=== PATIENT | female | born 1970 | race Caucasian/White ===

== ENCOUNTER 2017-08-30 05:10 | Emergency (ER) | payer BC, OTHER ==
[2017-08-30 05:56] LABS: #Basophils 0.1 thou/uL (0.0-0.2); #Eosinphils 0.2 thou/uL (0.0-0.7); #Lymphocytes 1.7 thou/uL (1.20-3.40); #Monocytes 0.6 thou/uL (0.11-0.59); #Neutrophils 4.3 thou/uL (1.40-6.50); %Basophils 1.3 % (0.0-1.0); %Eosinophils 2.6 % (0.0-10.0); %Lymphocytes 24.8 % (21.0-51.0); %Monocytes 8.2 % (0.0-10.0); %Neutrophils 63.1 % (42.0-75.0); Hemoglobin 14.5 g/dL (12.0-16.0); Mean Corpuscular HGB CONC 34.5 g/dL (32.0-36.0); Mean Corpuscular Hemoglobin 30.5 pg (27.0-31.0); Mean Corpuscular Volume 88.5 fl (81.0-99.0); Platelet Count 148 thou/uL (130-400); RBC Distribution Width 11.7 % (11.5-14.5); Red Blood Cell (RBC) Count 4.74 mill/uL (4.20-5.40); White Blood Cell (WBC) Count 6.8 thou/uL (4.8-10.8)
[2017-08-30] MEDS ORDERED: Ondansetron ODT 4 MG TAB ONE (06:01)
[2017-08-30] MEDS ORDERED: Acetaminophen 325 MG TAB ONE (06:01)
[2017-08-30 06:17] LABS: Bilirubin Negative (Negative); Blood, Urine Negative (Negative); Clarity CLEAR (Clear); Glucose, Urine (Dipstick) 100 mg/dL (Negative); Leukocyte Negative (Negative); Nitrite Negative (Negative); Protein, Urine (Dipstick) 30 mg/dL (Neg-Trace); Specific Gravity, Urine 1.029 (1.002-1.036); Urobilinogen 0.2 mg/dL (0.2-1.0); pH, Urine 5.5 (5.0-9.0)
[2017-08-30 06:18] LABS: Pregnancy Test - Urine (BHCG) Negative (Negative); Pregu Control Background? CLEAR/WHITE (CLR/WHITE); Pregu Control Bar Appear? YES (CONTROL BAR); Specific Gravity 1.029 (1.002-1.036)
[2017-08-30 06:20] LABS: ALT (SGPT) 11 U/L (8-55); AST (SGOT) 19 U/L (5-34); Alkaline Phosphatase 68 U/L (40-150); Anion Gap 13 mmol/L (10-20); BUN (Urea Nitrogen) 19 mg/dL (7.0-18.7); Bilirubin, Total 0.3 mg/dL (0.2-1.2); Calc. Creatinine Clearance 0 mL/min (70-130); Calcium 9.5 mg/dL (7.8-10.44); Carbon Dioxide 21 mmol/L (22-29); Chloride 108 mmol/L (98-107); Estimated GFR-MDRD 88; Glucose 107 mg/dL (70-105); Lipase 21 U/L (8-78); Potassium 3.9 mmol/L (3.5-5.1); Sodium 138 mmol/L (136-145)
[2017-08-30 06:20] LABS: Bacteria/HPF None Seen HPF (None Seen); Hyaline Casts/LPF 0-3 HYALINE CAST LPF (0-3 Hyaline); Pathc Cast-AUWi Flag 0.67 (0-2.49); RBC/HPF 0-3 HPF (0-3); WBC/HPF 0-3 HPF (0-3)
[2017-08-30 06:26] LABS: Crystals/HPF 2+ CA OXALATE HPF (Negative)
[2017-08-30] MEDS ORDERED: Ketorolac Tromethamine 30 MG/ML VIAL ONE (07:24)
--- NOTE | 2017-08-30 07:41 | RAD ---
CHEST 1 VIEW ABDOMEN 2 VIEWS: Date: 08/30/17 HISTORY: Chest and abdomen pain. FINDINGS: The cardiac silhouette and pulmonary vasculature are unremarkable. Mediastinum is midline. There is n o confluent air space consolidation or evidence of free subdiaphragmatic gas. Gas and stool are apparent throughout the colon and rectum. There are no differential air fluid level s. Metallic clips overlie the gallbladder fossa and right lower quadrant. Phleboliths project over th e pelvis. IMPRESSION: 1. No active cardiopulmonary abnormalities are demonstrated. 2. Nonspecific bowel gas pattern. 3. Postoperative changes of the abdomen. POS: [facility]
--- NOTE | 2017-08-30 08:13 | ULT ---
PELVIC ULTRASOUND WITH DOPPLER: (Transabdominal, transvaginal, Perez scale, color flow and spectral Doppler) Date: 08/30/17 HISTORY: Left lower quadrant pain. FINDINGS: The uterus measures 9.0 x 5.7 x 4.5 cm without focal mass or endometrial fluid. The endometrium measu res 1.0 cm in thickness. The right ovary is not seen. The left ovary measures 4.0 x 3.9 x 3.8 cm, and demonstrates flow. There is a complex cyst arising from the left ovary measuring 3.5 x 3.3 x 3.3 cm. No free fluid is seen in the cul-de-sac. Nabothian cysts are present in the cervix. IMPRESSION: Complex 3.5 cm left ovarian cyst. A follow-up exam is recommended in 8-10 weeks. POS: [facility]
== END 2017-08-30 10:05 | disposition home or self-care (01) ==
LOC: ERS 05:10
DX: N83.202 Unspecified ovarian cyst, left side (principal); E11.9 Type 2 diabetes mellitus without complications; E03.9 Hypothyroidism, unspecified; F17.210 Nicotine dependence, cigarettes, uncomplicated; F41.9 Anxiety disorder, unspecified
CPT/HCPCS: 36416; 74022; 76856; 80053; 81003; 81015; 81025; 83690; 85025; 96374; 96375; J1885; J2270; Q0162

== ENCOUNTER 2022-01-21 14:41 | Outpatient (CLI) | payer BC | END 2022-01-21 14:42 | disposition home or self-care (01) | LOC: BICMAMMO 14:41 | PROVIDERS: ATTEND Family Medicine | DX: Z12.31 Encounter for screening mammogram for malignant neoplasm of breast (principal); R92.1 Mammographic calcification found on diagnostic imaging of breast; Z80.3 Family history of malignant neoplasm of breast | CPT/HCPCS: 77063; 77067 ==

== ENCOUNTER 2022-04-12 09:03 | Outpatient (CLI) | payer BC ==
[2022-04-12 11:51] LABS: Hemoglobin 13.1 g/dL (12.0-15.5)
[2022-04-12 12:20] LABS: Anion Gap 11 mmol/L (10-20); BUN (Urea Nitrogen) 16 mg/dL (9.8-20.1); Calc. Creatinine Clearance 0 mL/min (70-130); Calcium 9.5 mg/dL (7.8-10.44); Carbon Dioxide 29 mmol/L (22-29); Chloride 103 mmol/L (98-107); Estimated GFR 85; Glucose 124 mg/dL (70-105); Potassium 4.1 mmol/L (3.5-5.1); Sodium 139 mmol/L (136-145)
[2022-04-12 12:23] LABS: BHCG - Serum Negative (NEGATIVE); Pregs Control Background? CLEAR/WHITE (CLR/WHITE); Pregs Control Bar Appear? YES (CONTROL BAR)
== END 2022-04-12 09:04 | disposition home or self-care (01) ==
LOC: LABBT 09:03
PROVIDERS: ATTEND Internal Medicine Cardiovascular Disease
DX: Z01.812 Encounter for preprocedural laboratory examination (principal); Z20.822 Contact with and (suspected) exposure to COVID-19
CPT/HCPCS: 80048; 84703; 85014; 85018; 87811

== ENCOUNTER 2022-04-15 05:58 | Day surgery (SDC) | payer BC ==
[2022-04-13 16:02] VITALS: BMI 26.6
[2022-04-15] MEDS ORDERED: Heparin 10,000 UNITS/ 10 ML VIAL ONE (06:42)
[2022-04-15] MEDS ORDERED: Nitroglycerin 100MG/250ML BOT 250 ML ONE (06:42)
[2022-04-15] MEDS ORDERED: Verapamil 5 MG/2 ML VIAL ONE (06:42)
[2022-04-15] MEDS ORDERED: Lidocaine 1% PF 5 ML VIAL ONE (06:48)
[2022-04-15] MEDS ORDERED: Fentanyl 100 MCG/2 ML VIAL ONE (07:14)
[2022-04-15] MEDS ORDERED: Midazolam HCl 2 mg/2 ml Vial ONE (07:15)
[2022-04-15] MEDS ORDERED: Iopamidol 370 76% 100 ML VIAL ONE (08:39)
== END 2022-04-15 11:02 | disposition home or self-care (01) ==
LOC: SDC 05:58
PROVIDERS: ATTEND Internal Medicine Cardiovascular Disease
PROC: 4A023N7 Measurement of Cardiac Sampling and Pressure, Left Heart, Percutaneous Approach (ICD-10-PCS; principal; 2022-04-15)
PROC: B2111ZZ Fluoroscopy of Multiple Coronary Arteries using Low Osmolar Contrast (ICD-10-PCS; principal; 2022-04-15)
DX: R94.39 Abnormal result of other cardiovascular function study (principal); E78.00 Pure hypercholesterolemia, unspecified; I10 Essential (primary) hypertension; E03.9 Hypothyroidism, unspecified; I25.89 Other forms of chronic ischemic heart disease; E11.9 Type 2 diabetes mellitus without complications; Z79.4 Long term (current) use of insulin; Z79.82 Long term (current) use of aspirin; Z79.890 Hormone replacement therapy; Z79.899 Other long term (current) drug therapy; Z88.6 Allergy status to analgesic agent
CPT/HCPCS: 93458; 99152; C1894; J1644; J2250; J3010; Q9967

== ENCOUNTER 2025-04-14 09:23 | Outpatient (CLI) | payer BC | END 2025-04-14 09:24 | disposition home or self-care (01) | LOC: SCSRAD 09:23 | DX: S89.92XA Unspecified injury of left lower leg, initial encounter (principal); M11.262 Other chondrocalcinosis, left knee ==